=== PATIENT | male | born 1990 | race Caucasian/White ===

== ENCOUNTER 2017-05-21 18:02 | Inpatient (IN) | payer OTHER ==
[~2017-05-21] VITALS: Ht 177.8 cm; Wt 58.1 kg
--- NOTE | 2017-05-21 21:00 | NUR ---
INTAKE ASSESSMENT PT ASSESSED IN INTAKE.PT IS A/O X 4,LIVES IN [place] FRIENDS.V/S STABLE.SPEECH IS CLEAR AND COHERENT,AMBULATES WITH A STEADY GAIT.UNIT RULES AND REGULATIONS EXPLAINED.PT IS COOPERATIVE AND VERBALIZES UNDERSTANDING.PT IS IN A STABLE CONDITION TO PROCEED TO DETOX UNIT.
[2017-05-21] MEDS ORDERED: IBUPROFEN 400 MG TABLET PO PRN (21:15)
[2017-05-21] MEDS ORDERED: ONDANSETRON 4 MG/2 ML VIAL IM PRN (21:15)
[2017-05-21] MEDS ORDERED: CLONIDINE HCL 0.1 MG TABLET PO PRN (21:15)
[2017-05-21] MEDS ORDERED: MAG HYDROX/AL HYDROX/SIMETH 30 ML LIQUID UDC PO PRN (21:15)
[2017-05-21] MEDS ORDERED: LORAZEPAM 1 MG TABLET PO PRN (21:15)
[2017-05-21] MEDS ORDERED: MAGNESIUM HYDROXIDE 30 ML LIQUID UDC PO PRN (21:15)
[2017-05-21] MEDS ORDERED: MIRALAX 17 GM POWD.PACK PO PRN (21:15)
[2017-05-21] MEDS ORDERED: LOPERAMIDE HCL 2 MG CAPSULE PO PRN ×2 (21:15)
[2017-05-21] MEDS ORDERED: diphenhydrAMINE 50 MG CAPSULE PO PRN (21:15)
[2017-05-21] MEDS ORDERED: BUPRENORPHINE HCL 2 MG TAB.SUBL SL PRN (21:15)
[2017-05-21] MEDS ORDERED: ONDANSETRON ODT 4 MG TAB.RAPDIS SL PRN (21:15)
[2017-05-21] MEDS ORDERED: DICYCLOMINE HCL 20 MG TABLET PO PRN (21:15)
[2017-05-21] MEDS ORDERED: ACETAMINOPHEN 325 MG TABLET PO PRN (21:15)
[2017-05-21] MEDS ORDERED: QUET200T PO (21:32)
[2017-05-21 21:39] LABS: *AMPHETAMINE, URINE NEGATIVE (NEGATIVE); *BARBITURATE, URINE NEGATIVE (NEGATIVE); *CANNABINOID, URINE NEGATIVE (NEGATIVE); *COCCAINE, URINE NEGATIVE (NEGATIVE); *OPIATE, URINE NEGATIVE (NEGATIVE); *PHENCYCLIDINE SCREEN,URINE NEGATIVE (NEGATIVE)
--- NOTE | 2017-05-21 22:00 | NUR ---
ADMISSION NOTE-- HT - 5 FEET,19 INCHES. WT - 128 POUNDS. B/P=126/80; T=97.3; P=78; R=16; O2 SAT=98%. COWS = 5. NKDA/NKFA Admitting 27 y/o male to [facility] for medically supervised withdrawals from Opiate/Cocaine and occasional Xanax dependency.Pt reports using Heroin and Cocaine IV for past 7 years and prescription Xanax for the past 9 years.Pt reports having history of Anxiety,Depression,Bipolar disorder and Insomnia.He takes Seroquel 200 mg PO for insomnia.Pt is A/A/O X 4.Presented with anxiety,body ache and restless legs.Skin is intact,warm and dry to touch.Pt has track bowie on bilateral wrists from IV abuse.No s/s of infection noted.Respirations are even and non labored;No SOB noted;abdomen is soft and palpable with B/S present x 4.No c/o N/V/D/C noted.Pt lives in [place] with his friends.Pt does not have a PCP.Pt agrees to take PNA and FLU vaccinations. Pt has no known allergies to food or medications,placed on regular diet and FULL CODE status.Md's notified,orders obtained.Pt oriented to room and unit,care plan and safety checks initiated;all safety measures in place per hospital policy;bed is locked in the lowest position with side rails up x 2;call light within reach;will continue to monitor for safe detox. SUBSTANCE USE HX-- 1) HEROIN-PT REPORTS USING 1 GRAM IV DAILY FOR PAST 3 MONTHS. LAST USED ON 05-19-17. 2) COCAINE-PT REPORTS USING 1 GRAM IV FOR PAST 3 MONTHS. LAST USED ON 05-19-17 3) XANAX-PT REPORTS TAKING 2 MGS ,2 TIMES A WEEK FOR THE PAST 3 MONTHS. LAST TAKEN 2 WEEKS AGO. TREATMENT HX-- [facility] IN [place]. LENGTH OF STAY- 4 DAYS. PT REPORTS THAT HIS LONGEST SOBER PERIOD WAS FOR 3 MONTHS,FROM AUGUST TO NOVEMBER 2016.
[2017-05-21] MEDS: HYDROXYZINE PAMOATE 25 MG CAPSULE PO PRN (22:01)
[2017-05-21] MEDS: METHOCARBAMOL 750 MG TABLET PO PRN (22:02)
--- NOTE | 2017-05-21 22:05 | NUR ---
PRN MEDS PRN VISTARIL AND ROBAXIN GIVEN ORDERED FOR C/O ANXIETY AND MYALGIA RESPECTIVELY.WILL MONITOR FOR EFFECTIVENESS.
[2017-05-21] MEDS ORDERED: METHOCARBAMOL 750 MG TABLET ONE (22:13)
[2017-05-21] MEDS ORDERED: HYDROXYZINE PAMOATE 25 MG CAPSULE ONE (22:13)
[2017-05-21 22:19] LABS: BASOPHILS % (AUTO) 0.5 % (0.0-2.0); EOSINOPHILS # (AUTO) 0.1 K/uL (0.0-0.7); EOSINOPHILS % (AUTO) 1.1 % (0.0-7.0); HEMATOCRIT 48.1 % (40-50); HEMOGLOBIN 16.4 G/DL (14.0-18.0); LYMPHOCYTES # (AUTO) 3.5 K/UL (0.8-4.8); LYMPHOCYTES % (AUTO) 44.5 % (20.5-51.5); MEAN CORPUSCULAR HEMOGLOBIN 29.7 UUG (27.0-31.0); MEAN CORPUSCULAR HGB CONC 34 g/dL (32.0-37.0); MEAN CORPUSCULAR VOLUME 87.3 FL (82.0-92.0); MONOCYTES # (AUTO) 0.6 K/UL (0.1-1.30); MONOCYTES % (AUTO) 7.7 % (0.0-11.0); NEUTROPHILS # (AUTO) 3.7 K/UL (1.8-8.9); NEUTROPHILS % (AUTO) 46.2 % (38.5-71.5); PLATELET COUNT (AUTO) 263 K/UL (150-450); RED BLOOD CELL COUNT(AUTO) 5.51 MIL/UL (4.7-6.1); WHITE BLOOD COUNT (AUTO) 7.9 K/UL (4.0-11.2)
[2017-05-21 22:37] LABS: ALANINE AMINOTRANSFERASE 23 U/L (16-63); ALKALINE PHOSPHATASE 100 U/L (50-136); AMYLASE 58 U/L (25-115); ASPARTATE AMINOTRANSFERASE 13 U/L (15-37); BILIRUBIN,TOTAL 0.5 mg/dL (0.2-1.0); CARBON DIOXIDE 29 mmol/L (21-32); CHLORIDE 102 mmol/L (98-107); CREATININE 0.9 mg/dL (0.6-1.3); GLUCOSE 95 mg/dL (74-106); LIPASE 168 U/L (73-393); POTASSIUM 3.2 mmol/L (3.5-5.1); TOTAL PROTEIN, SERUM 7.9 g/dL (6.4-8.2); UREA NITROGEN, BLOOD 10 mg/dL (7-18)
[2017-05-21 22:45] LABS: ETHANOL < 3 MG/DL (0-0); THYROID STIMULATING HORMONE 2.838 mIU/mL (0.358-3.740)
--- NOTE | 2017-05-21 23:00 | NUR ---
PRN F/U PT IS CALM AND RESTING IN BED WITH EYES CLOSED AT THIS TIME.NO S/S OF ANXIETY NOTED.
[2017-05-21] MEDS ORDERED: POTASSIUM CHLORIDE 20 MEQ TAB.PRT.SR PO ONE (23:30)
[2017-05-22] VITALS: BP 118/74
--- NOTE | 2017-05-22 00:15 | NUR ---
URINE DRUG SCREEN IS NEGATIVE.POTASSIUM LEVEL IS 3.2.MD NOTIFIED,REPLACED WITH POTASSIUM CHLORIDE 40 MEQ ORDERED.
[2017-05-22 04:00] VITALS: BP 115/76
--- NOTE | 2017-05-22 06:31 | NUR ---
END OF SHIFT Pt is a 27 y/o male admitted to [facility] for medically supervised withdrawals from Opiate/Cocaine and occasional Xanax dependency.Pt is A/A/O X 4.Presented with anxiety,body ache and restless legs.Skin is intact,warm and dry to touch.Pt has track bowie on bilateral wrists from IV abuse.No s/s of infection noted.Respirations are even and non labored;No SOB noted;abdomen is soft and palpable with B/S present x 4.No c/o N/V/D/C noted.Pt has no known allergies to food or medications,placed on regular diet and FULL CODE status.PRN Vistaril and Robaxin were given last night and were effective;pt slept 5 hrs,fluid intake was 700 mls,voided x 1 .PO fluids encouraged as tolerated.Initial COWS=5,Last COWS=2;all safety measures in place per hospital policy;bed is locked in the lowest position with side rails up x 2;call light within reach.
--- NOTE | 2017-05-22 07:30 | NUR ---
start of shift note: received pt from maintenance technician 2nd shift nurse, pt is in stable condition at this time, pts last cows is 2. pt is admitted to [facility] for opiate/cocaine/benzo withdrawal/dependence. will monitor pt for any changes and continue to meet pts needs
[2017-05-22] MEDS ORDERED: INFLUENZA VACCINE 2017-2018 0.5 ML DISP.SYRIN IM ONE (09:00)
[2017-05-22] MEDS ORDERED: TUBERCULIN,PURIF.PROT.DERIV. 5 TU/0.1 ML TEST ID ONE (09:00)
[2017-05-22] MEDS ORDERED: PNEUMOCOCCAL 23-VAL P-SAC VAC 0.5 ML VIAL IM ONE (09:00)
[2017-05-22] MEDS: MULTIVITAMINS,THERAPEUTIC TABLET PO SCH (09:09)
--- NOTE | 2017-05-22 09:09 | NUR ---
assessed pt with cows of 12, PRN 4 mg subutex was administered, pt with stuffy nose, unable to stay still and dilated pupils.
[2017-05-22 10:00] VITALS: BP 132/86
[2017-05-22] MEDS: METHOCARBAMOL 750 MG TABLET PO PRN (10:27)
[2017-05-22] MEDS: HYDROXYZINE PAMOATE 25 MG CAPSULE PO PRN (10:27)
--- NOTE | 2017-05-22 10:34 | NUR ---
pt verbalized subutex was slightly effective, but with complaints of anxiety and body aches 09/27. prn robaxin and vistaril administered
[2017-05-22 15:36] VITALS: BP 109/74
[2017-05-22 17:28] VITALS: BP 112/63
--- NOTE | 2017-05-22 18:59 | NUR ---
end of shift note: pt is in stable condition at this time no s/s of pain or discomfort. pt is admitted to [facility] for opiate/benzo/cocaine. pt last cows 5. pt is will start taper tomorrow. pt tolerated medications that were administered well. will endorse pt to night time babysitter nurse.
--- NOTE | 2017-05-22 19:30 | NUR ---
START OF SHIFT Pt is a 27 y/o male admitted to [facility] for Opiate/Cocaine and occasional Xanax dependency.Pt is A/A/O X 4.Skin is intact,warm and dry to touch.Respirations are even and non labored;No SOB noted;abdomen is soft and palpable with B/S present x 4.No c/o N/V/D/C noted.Pt has no known allergies to food or medications,placed on regular diet and FULL CODE status.Last COWS=5;all safety measures in place per hospital policy;bed is locked in the lowest position with side rails up x 2;call light within reach.
[2017-05-22 20:00] VITALS: BP 129/85
[2017-05-22] MEDS: QUETIAPINE FUMARATE 200 MG TABLET PO SCH (21:13)
[2017-05-23] VITALS: BP 131/75
--- NOTE | 2017-05-23 04:00 | NUR ---
V/S REFUSED; COWS DEFERRED PT IS IN DEEP SLEEP,BREATHING IS EVEN AND NON LABORED.NO S/S OF DISTRESS NOTED.V/S REFUSED; COWS DEFERRED.ALL SAFETY MEASURES IN PLACE,WILL CONTINUE TO MONITOR.
--- NOTE | 2017-05-23 06:15 | NUR ---
END OF SHIFT Pt is a 27 y/o male admitted to [facility] for Opiate/Cocaine and occasional Xanax dependency.Pt is A/A/O X 4.Skin is intact,warm and dry to touch.Respirations are even and non labored;No SOB noted;abdomen is soft and palpable with B/S present x 4.No c/o N/V/D/C noted.Pt has no known allergies to food or medications,placed on regular diet and FULL CODE status.Pt to start on Subutex taper today per orders.Last COWS=3;No PRN meds given;pt slept 7 hrs; fluid intake was 1385 mls; voided x 2 ; all safety measures in place per hospital policy;bed is locked in the lowest position with side rails up x 2;call light within reach.Care endorsed to Charge nurse.
[2017-05-23 06:52] LABS: CREATININE 0.9 mg/dL (0.6-1.3); MAGNESIUM 1.9 mg/dL (1.8-2.4); POTASSIUM 3.9 mmol/L (3.5-5.1)
--- NOTE | 2017-05-23 07:15 | NUR ---
Start of Shift Endorsement received from nightshift nurse. Pt is a 27 y/o male admitted for Heroin, Cocaine and Xanax dependence. Pt has been placed on a 5 day Subutex taper. Pt is tolerating the taper AEB COWS 3 @ 2000. Pt did not receive any PRN medications. Pt reports sleeping 7 hours. VS WNL. Full Code. Regular Diet. PT is alert and oriented x4. Pt is in STABLE condition at this time. Remains compliant with medication and diet regimen. All needs have been met, All safety measures in place per hospital policy. Bed in lowest position, side rails up x2, call-light within reach. Will continue to monitor
[2017-05-23 08:00] VITALS: BP 108/65
[2017-05-23] MEDS: MULTIVITAMINS,THERAPEUTIC TABLET PO SCH (09:28)
[2017-05-23] MEDS: BUPRENORPHINE HCL 2 MG TAB.SUBL SL SCH ×3 (09:28→21:45)
[2017-05-23 12:00] VITALS: BP 122/73
[2017-05-23 12:07] LABS: HEPATITIS B SURFACE AG Negative (Negative)
--- NOTE | 2017-05-23 13:32 | NUR ---
Therapist prompted client to go to groups. Client agreed to attend.
[2017-05-23 16:00] VITALS: BP 125/81
--- NOTE | 2017-05-23 19:11 | NUR ---
End of Shift Endorsement given to nightshift nurse. Pt is a 27 y/o male admitted for Heroin, Cocaine and Xanax dependence. Pt has been placed on a 5 day Subutex taper. Pt is tolerating the taper AEB COWS 4 @ 1600. Pt did not receive any PRN medications. Educated pt on coping techniques and educated pt on deep breathing technique to help relieve minor to moderate anxiety. Educated pt on medication S/E, dangers of relapse and withdrawal S/S. Educated pt on diet rand medication regimen. Intake: 2610ml, Void x3, BM x0. VS WNL. Full Code. Regular Diet. PT is alert and oriented x4. Pt is in STABLE condition at this time. Remains compliant with medication and diet regimen. All needs have been met, All safety measures in place per hospital policy. Bed in lowest position, side rails up x2, call-light within reach. Will continue to monitor
--- NOTE | 2017-05-23 19:20 | NUR ---
START OF SHIFT Patient is 27-year-old male admitted on 05/21/17 for Heroin, Xanax, and Cocaine dependence. Patient has a past medical history of anxiety, depression, bipolar disorder, and insomnia. Patient is FULL code, NKA, on a regular diet. Patient denies history of seizure. Patient is on a 5-day Subutex taper, tolerating well. Upon assessment, patient is alert and oriented x4, respirations even and unlabored, denies SOB at this time. Patient is on fall precautions, safety measures in place, bed locked in low position, side rails up x2, call light within reach. Will continue to monitor.
[2017-05-23 20:00] VITALS: BP 119/79
[2017-05-23] MEDS: QUETIAPINE FUMARATE 200 MG TABLET PO SCH (21:46)
[2017-05-24] VITALS: BP 102/50
--- NOTE | 2017-05-24 | NUR ---
MIDNIGHT COWS DEFERRED Midnight COWS deferred due to patient asleep; to be assessed and scored while patient is awake per protocol. Respirations are 16/min, even and unlabored. Safety measures in place, bed locked in low position, side rails up x2, call light within reach. Will continue to monitor.
[2017-05-24 04:00] VITALS: BP 111/61
--- NOTE | 2017-05-24 04:00 | NUR ---
4AM COWS DEFERRED 4AM COWS deferred due to patient asleep; to be assessed and scored while patient is awake per protocol. Respirations are 16/min, even and unlabored. Safety measures in place, bed locked in low position, side rails up x2, call light within reach. Will continue to monitor.
--- NOTE | 2017-05-24 07:10 | NUR ---
END OF SHIFT Patient is 27-year-old male admitted on 05/21/17 for Heroin, Xanax, and Cocaine dependence. Patient has a past medical history of anxiety, depression, bipolar disorder, and insomnia. Patient is FULL code, NKA, on a regular diet. Patient denies history of seizure. Patient is on a 5-day Subutex taper, tolerating well. Patient slept for 6 hours, total intake of 855 mL, void x2, stool x1. Patient received no PRNs. Last COWS score was 5. Patient inquired about making a phone call today, SN will notify day nurse to follow-up. Patient is on fall precautions, safety measures in place, bed locked in low position, side rails up x2, call light within reach. Will endorse to day shift.
--- NOTE | 2017-05-24 07:20 | NUR ---
Start of Shift Endorsement received from nightshift nurse. Pt is a 27 y/o male admitted for Heroin, Cocaine and Xanax dependence. Pt has been placed on a 5 day Subutex taper. Pt is tolerating the taper AEB COWS 5 @ midnight. Pt did not receive any PRN medications. Pt reports sleeping 6 hours. VS WNL. Full Code. Regular Diet. PT is alert and oriented x4. Pt is in STABLE condition at this time. Remains compliant with medication and diet regimen. All needs have been met, All safety measures in place per hospital policy. Bed in lowest position, side rails up x2, call-light within reach. Will continue to monitor
[2017-05-24 08:00] VITALS: BP 100/62
[2017-05-24] MEDS ORDERED: BUPRENORPHINE HCL 2 MG TAB.SUBL SL SCH (09:00)
[2017-05-24] MEDS: MULTIVITAMINS,THERAPEUTIC TABLET PO SCH (09:02)
[2017-05-24 12:00] VITALS: BP 110/63
[2017-05-24] MEDS: GABAPENTIN 400 MG CAPSULE PO SCH (15:16)
[2017-05-24] MEDS: BUPRENORPHINE HCL 2 MG TAB.SUBL SL SCH ×2 (15:16→21:26)
[2017-05-24 16:00] VITALS: BP 124/80
--- NOTE | 2017-05-24 19:15 | NUR ---
End of Shift Endorsement given to nightshift nurse. Pt is a 27 y/o male admitted for Heroin, Cocaine and Xanax dependence. Pt has been placed on a 5 day Subutex taper. Pt is tolerating the taper AEB COWS 2 @ 1600. Pt did not receive any PRN medications. Educated pt on coping techniques and educated pt on deep breathing technique to help relieve minor to moderate anxiety. Educated pt on medication S/E, dangers of relapse and withdrawal S/S. Educated pt on diet rand medication regimen. Intake: 2740ml, Void x3, BM x1. VS WNL. Full Code. Regular Diet. PT is alert and oriented x4. Pt is in STABLE condition at this time. Remains compliant with medication and diet regimen. All needs have been met, All safety measures in place per hospital policy. Bed in lowest position, side rails up x2, call-light within reach. Will continue to monitor
[2017-05-24 20:00] VITALS: BP 123/85
--- NOTE | 2017-05-24 20:00 | NUR ---
Start of Shift Pt is a 27 year old male admitted for Opiate dependence, placed on Subutex taper. Pt reported using Heroin 1g/daily, Xanax 2mg twice/weekly and cocaine 1g/daily. PMH: anxiety, depression, bipolar disorder and insomnia. Pt has NKA, regular diet, fall precautions and full code. Upon assessment, pt reports feeling anxious, muscles/joint aches, skin is clammy, tremors felt upon touch, respirations even/unlabored, denies SOB/chest pain, denies n/v/d, medications due. Safety measures in place, call light within reach, side rails up x2, bed locked and in low position. Will continue to monitor.
[2017-05-24] MEDS: QUETIAPINE FUMARATE 200 MG TABLET PO SCH (21:26)
[2017-05-24] MEDS: GABAPENTIN 300 MG CAPSULE PO SCH (21:26)
[2017-05-25] VITALS: BP 108/56
--- NOTE | 2017-05-25 04:00 | NUR ---
COWS deferred d/t pt sleeping, to assess while pt is awake as ordered. Pt refused to be woken up for [address], will continue to monitor.
--- NOTE | 2017-05-25 07:00 | NUR ---
End of Shift Pt is a 27 year old male admitted for Opiate dependence, placed on Subutex taper. Pt reported using Heroin 1g/daily, Xanax 2mg twice/weekly and cocaine 1g/daily. PMH: anxiety, depression, bipolar disorder and insomnia. Pt has NKA, regular diet, fall precautions and full code. During shift, pt reported feeling anxious, muscles/joint aches, skin clammy, tremors felt upon touch scheduled taper medications administered, effective in management of s/s of withdrawal as reported per pt, COWS 4. No PRN medications administered during shift. Pt slept for 6 hours, intake of 296 ml PO, voids x2 and stool x0. Safety measures in place, call light within reach, side rails up x2, bed locked and in low position. Endorsed to day shift nurse.
--- NOTE | 2017-05-25 07:30 | NUR ---
START OF SHIFT NOTE: Received report from rn night nurse. Pt is a 27 year old male admitted for Opiate dependence, placed on Subutex taper. Tolerating well. Pt is alert and oriented X4. Color good, skin warm and dry. Respirations even and unlabored. Safety precautions observed. Call light within reach. Will continue to monitor.
[2017-05-25 08:38] VITALS: BP 108/56
--- NOTE | 2017-05-25 09:00 | NUR ---
VSS COWS 6 C/O body aches, anxiety, sweating
[2017-05-25] MEDS: BUPRENORPHINE HCL 2 MG TAB.SUBL SL SCH ×3 (09:41→20:43)
[2017-05-25] MEDS: MULTIVITAMINS,THERAPEUTIC TABLET PO SCH (09:41)
[2017-05-25] MEDS: GABAPENTIN 400 MG CAPSULE PO SCH (09:41)
[2017-05-25 12:26] VITALS: BP 128/80
[2017-05-25] MEDS ORDERED: GABAPENTIN 400 MG CAPSULE PO SCH (15:00)
--- NOTE | 2017-05-25 15:00 | NUR ---
VSS COWS 6
[2017-05-25 17:38] VITALS: BP 128/80
--- NOTE | 2017-05-25 18:29 | NUR ---
END OF SHIFT NOTE: Report given to stapling machine operator nurse .Pt is a 27 year old male admitted for Opiate dependence, placed on Subutex taper. Tolerating well. Pt is alert and oriented X4. Color good, skin warm and dry. Respirations even and unlabored. Vital signs have remained stable throughout shift. Last COWS 6 @ 1500. Safety precautions observed. Call light within reach.
[2017-05-25 20:00] VITALS: BP 139/90
--- NOTE | 2017-05-25 20:00 | NUR ---
Start of Shift Pt is a 27 year old male admitted for Opiate dependence, placed on Subutex taper. Pt reported using Heroin 1g/daily, Xanax 2mg twice/weekly and cocaine 1g/daily. PMH: anxiety, depression, bipolar disorder and insomnia. Pt has NKA, regular diet, fall precautions and full code. Upon assessment, pt reports feeling anxious, muscles aches in arms, skin is clammy, respirations even/unlabored, denies SOB/chest pain, denies n/v/d, medications due. Safety measures in place, call light within reach, side rails up x2, bed locked and in low position. Will continue to monitor.
[2017-05-25] MEDS: GABAPENTIN 300 MG CAPSULE PO SCH (20:42)
[2017-05-25] MEDS: QUETIAPINE FUMARATE 200 MG TABLET PO SCH (21:32)
--- NOTE | 2017-05-26 | NUR ---
COWS deferred d/t pt sleeping, to assess while pt is awake as ordered. Pt refused to be woken up for [address] measures in [address], will continue to monitor.
--- NOTE | 2017-05-26 07:00 | NUR ---
End of Shift Pt is a 27 year old male admitted for Opiate dependence, placed on Subutex taper. Pt reported using Heroin 1g/daily, Xanax 2mg twice/weekly and cocaine 1g/daily. PMH: anxiety, depression, bipolar disorder and insomnia. Pt has NKA, regular diet, fall precautions and full code. During shift, pt reported feeling anxious, muscle aches in arms, skin is clammy scheduled taper medication administered, COWS 5. No PRN medications administered during shift. Pt slept for 6 hours, intake of 855 ml PO, voids x2 and stool x0. Safety measures in place, call light within reach, side rails up x2, bed locked and in low position. Endorsed to day shift nurse.
[2017-05-26 08:00] VITALS: BP 112/59
[2017-05-26] MEDS: MULTIVITAMINS,THERAPEUTIC TABLET PO SCH (08:39)
[2017-05-26] MEDS: GABAPENTIN 300 MG CAPSULE PO SCH ×3 (08:53→21:27)
[2017-05-26] MEDS ORDERED: BUPRENORPHINE HCL 2 MG TAB.SUBL SL SCH (09:00)
--- NOTE | 2017-05-26 09:00 | NUR ---
START OF SHIFT Received report from supervisor alum plant nurse. Patient is 27 year old male admitted for medically supervised withdrawal from Benzodiazepines and Opiates. Patient is full code with NKA. On assessment this AM: COWS: 4 . Denies SOB, chest pain. Patients vitals signs WNL. Patients vitals signs WNL. Reports anxiety, stuffy nose and tremors. Denies sweating, nausea, vomiting, stomach cramps, diarrhea, body aches, goosebumps at this time. Compliant with AM meds. No PRN given. Encouraged to attend group meetings today. Will continue to monitor patient. Addendum: 05/26/17 at 1134 by HAWA MARTINEZ RN Patient is on 5 day Subutex taper.
[2017-05-26 12:00] VITALS: BP 128/77
[2017-05-26] MEDS: METHOCARBAMOL 750 MG TABLET PO PRN (12:59)
--- NOTE | 2017-05-26 12:59 | NUR ---
PRN TYLENOL AND ROBAXIN Patient complains of pain 8/10 on arms. PRN Tylenol and Robaxin given. Will continue to monitor patient.
--- NOTE | 2017-05-26 14:15 | NUR ---
Therapist Prompted client to come to group today. Client agreed to come to group.
[2017-05-26] MEDS: HYDROXYZINE PAMOATE 25 MG CAPSULE PO PRN (15:17)
--- NOTE | 2017-05-26 15:18 | NUR ---
PRN VISTARIL Patient complains of anxiety, prn vistaril given. Will continue to monitor patient.
[2017-05-26 16:00] VITALS: BP 138/89
--- NOTE | 2017-05-26 16:18 | NUR ---
REASSESSMENT PRN VISTARIL Patient reports anxiety improved.
--- NOTE | 2017-05-26 18:36 | NUR ---
END OF SHIFT Patient is 27 year old male admitted for medically supervised withdrawal from Benzodiazepines and Opiates. Patient is full code with NKA. Patient completed his subutex taper today. Most recent COWS: 3. Reports mild anxiety and body aches. Denies tremors, sweating, nausea, vomiting, stomach cramps, diarrhea, body aches, goosebumps at this time. Med complaint this shift. PRN Tylenol and robaxin (for pain 8/10 on arms) and vistaril (for anxiety) given, effective. Ambulating with steady gait, no falls noted. BM X2 this shift. author agentweight shifter will continue to monitor patient.
[2017-05-26 20:00] VITALS: BP 133/86
--- NOTE | 2017-05-26 20:00 | NUR ---
Start of Shift Pt is a 27 year old male admitted for Opiate dependence, placed on Subutex taper completed. Pt reported using Heroin 1g/daily, Xanax 2mg twice/weekly and cocaine 1g/daily. PMH: anxiety, depression, bipolar disorder and insomnia. Pt has NKA, regular diet, fall precautions and full code. Upon assessment, pt reports feeling anxious, muscles aches in arms, respirations even/unlabored, denies SOB/chest pain, denies n/v/d, medications due. Pt is scheduled for discharge tomorrow. Safety measures in place, call light within reach, side rails up x2, bed locked and in low position. Will continue to monitor.
[2017-05-26] MEDS ORDERED: HYDR-3895 PO (20:56)
[2017-05-26] MEDS ORDERED: METH-406 PO (20:56)
[2017-05-26] MEDS ORDERED: GABA-534 PO (20:56)
[2017-05-26] MEDS: QUETIAPINE FUMARATE 200 MG TABLET PO SCH (21:27)
--- NOTE | 2017-05-27 | NUR ---
COWS deferred d/t pt sleeping to assess while pt is awake as ordered. Pt refused to be woken up for [address], will continue to monitor.
--- NOTE | 2017-05-27 04:00 | NUR ---
COWS deferred d/t pt sleeping to assess while pt is awake as ordered. Pt refused to be woken up for [address], will continue to monitor.
--- NOTE | 2017-05-27 07:23 | NUR ---
End of Shift Pt is a 27 year old male admitted for Opiate dependence, placed on Subutex taper completed. Pt reported using Heroin 1g/daily, Xanax 2mg twice/weekly and cocaine 1g/daily. PMH: anxiety, depression, bipolar disorder and insomnia. Pt has NKA, regular diet, fall precautions and full code. During shift, pt reported feeling anxious, muscles aches in arms scheduled medications administered, COWS 2. No PRN medication administered during shift. Pt is scheduled for discharge today. Pt slept for 7 hours, intake of 197ml PO, voids x5, and stool x1. Pt continues on a 1:1 for safety. Safety measures in place, call light within reach, side rails up x2, bed locked and in low position. Endorsed to day shift nurse.
--- NOTE | 2017-05-27 07:30 | NUR ---
start of shift note: pt is admitted to [facility] for opiate/benzo withdrawal/dependence. pt is in stable condition at this time no s/s of pain or discomfort. pt's last cows 2. pt is set to discharge today, will assist pt in discharging and will continue to monitor pt for any changes.
[2017-05-27] MEDS: GABAPENTIN 300 MG CAPSULE PO SCH (09:12)
[2017-05-27] MEDS: MULTIVITAMINS,THERAPEUTIC TABLET PO SCH (09:12)
--- NOTE | 2017-05-27 09:50 | NUR ---
discharge note: pt left the unit in stable condition, no s/s of pain, discomfort, or any withdrawal symptoms. pt teaching administered and pt verbalized understanding. pt will be transferred to [facility] via private car
== END 2017-05-27 09:50 | disposition home or self-care (01) | DRG 895 ==
LOC: SRC 20:32
PROVIDERS: ADMIT Internal Medicine; ATTEND Internal Medicine
PROC: HZ2ZZZZ Detoxification Services for Substance Abuse Treatment (ICD-10-PCS; principal; 2017-05-21)
PROC: HZ41ZZZ Group Counseling for Substance Abuse Treatment, Behavioral (ICD-10-PCS; 2017-05-23)
PROC: HZ31ZZZ Individual Counseling for Substance Abuse Treatment, Behavioral (ICD-10-PCS; 2017-05-23)
DX: F11.23 Opioid dependence with withdrawal (principal); F14.20 Cocaine dependence, uncomplicated; F31.9 Bipolar disorder, unspecified; E87.6 Hypokalemia; G47.00 Insomnia, unspecified; Z59.0 Homelessness; F41.9 Anxiety disorder, unspecified; Z79.899 Other long term (current) drug therapy; F17.210 Nicotine dependence, cigarettes, uncomplicated
CPT/HCPCS: 36415; 70030-TC; 80307; 83690; 83735; 84443; 85025; 86592; 86705; 86803; 87340; 87806; 90732; A4663; G0480